=== PATIENT | male | born 1955 | race Two or more races ===

== ENCOUNTER 2018-05-18 11:38 | Outpatient (CLI) | payer OTHER | END 2018-05-18 11:51 | disposition home or self-care (01) | LOC: RAD 501 11:38 | DX: M25.561 Pain in right knee (principal); M25.562 Pain in left knee ==

== ENCOUNTER → 2023-07-13 10:43 | Outpatient (CLI) | payer OTHER | END | disposition home or self-care (01) | LOC: LAB 10:43 | PROVIDERS: ATTEND Orthopaedic Surgery | DX: E55.9 Vitamin D deficiency, unspecified (principal); M85.9 Disorder of bone density and structure, unspecified; E56.1 Deficiency of vitamin K ==

== ENCOUNTER 2024-12-17 14:05 | Outpatient (CLI) | payer OTHER | END 2024-12-17 14:12 | disposition home or self-care (01) | LOC: RAD 14:05 | PROVIDERS: ATTEND Orthopaedic Surgery | DX: M25.561 Pain in right knee (principal); M25.562 Pain in left knee ==